=== PATIENT | male | born 1990 | race Caucasian/White ===

== ENCOUNTER → 2017-02-04 | Outpatient (CLI) | payer BC ==
[~2017-02-04] MED LIST: NORCO 325 MG-51 TAB PO
== END ==
LOC: MHCPAIN 09:47
DX: G89.29 Other chronic pain (principal); M47.27 Other spondylosis with radiculopathy, lumbosacral region; M53.3 Sacrococcygeal disorders, not elsewhere classified
CPT/HCPCS: G0463

== ENCOUNTER 2017-02-27 20:22 | Emergency (ER) | payer BC ==
[~2017-02-27] VITALS: Ht 172.7 cm; Wt 86.4 kg
[2017-02-27 20:27] VITALS: BP 135/79; PULSE 82; TEMP 98.4
[2017-02-27 21:20] LABS: INFLUENZA A NEGATIVE; INFLUENZA B NEGATIVE
== END 2017-02-27 21:52 | disposition home or self-care (01) ==
LOC: COL.ER 20:22
PROVIDERS: Nurse Practitioner
DX: J02.9 Acute pharyngitis, unspecified (principal)

== ENCOUNTER → 2017-04-21 | Outpatient (CLI) | payer BC | LOC: MHCPAIN 15:43 | DX: G89.29 Other chronic pain (principal); M47.817 Spondylosis without myelopathy or radiculopathy, lumbosacral region; M54.16 Radiculopathy, lumbar region | CPT/HCPCS: G0463 ==

== ENCOUNTER → 2017-05-05 | Outpatient (CLI) | payer BC | LOC: COL.RAD 10:33 | DX: M43.17 Spondylolisthesis, lumbosacral region (principal); R29.898 Other symptoms and signs involving the musculoskeletal system; M54.5 Low back pain; M54.16 Radiculopathy, lumbar region ==

== ENCOUNTER → 2017-05-07 | Outpatient (CLI) | payer BC | LOC: MHCPAIN 07:32 | DX: M47.27 Other spondylosis with radiculopathy, lumbosacral region (principal); M46.96 Unspecified inflammatory spondylopathy, lumbar region | CPT/HCPCS: J1100; Q9967 ==

== ENCOUNTER 2020-02-27 05:18 | Emergency (ER) | payer OTHER, BC ==
[~2020-02-27] VITALS: Ht 172.7 cm; Wt 81.8 kg
[2020-02-27 05:23] VITALS: BP 136/94; PULSE 81; TEMP 97.3
== END 2020-02-27 05:55 | disposition home or self-care (01) ==
LOC: COL.ER 05:18
DX: M79.645 Pain in left finger(s) (principal); Z88.0 Allergy status to penicillin; W23.0XXA Caught, crushed, jammed, or pinched between moving objects, initial encounter